=== PATIENT | male | born 1950 | race Caucasian/White ===

== ENCOUNTER 2017-05-11 12:30 | Inpatient (IN) | payer MEDICARE, OTHER ==
[~2017-05-11] VITALS: Ht 175.3 cm; Wt 76.5 kg
[2017-06-07] MEDS ORDERED: LANTUS2P SQ (16:24)
[2017-06-07] MEDS ORDERED: FAMO20TA2 PO (16:24)
[2017-06-07] MEDS ORDERED: CETI10CA3 PO (16:24)
[2017-06-07] MEDS ORDERED: ATOR10TA15 PO (16:24)
[2017-06-07] MEDS ORDERED: CART120C PO (16:24)
[2017-06-07] MEDS ORDERED: METF500T PO (16:24)
[2017-06-07] MEDS ORDERED: ASPI1TAB57 PO (16:24)
[2017-06-07] MEDS ORDERED: GLIM2TAB PO (16:24)
[2017-06-08] MEDS ORDERED: METOPROLOL TARTRATE 25 MG TAB PO PRN (11:15)
[2017-06-08] MEDS ORDERED: LACTATED RINGER'S 1000 ML IV PRN (11:15)
[2017-06-08] MEDS ORDERED: CHLORHEXIDINE GLUCONATE 2 % 1 PACK (2 CLOTHS) TOPICAL PRN (11:15)
[2017-06-08] MEDS ORDERED: POVIDONE IODINE 5% (ANTISEPSIS KIT) 4 APPLICATIONS EACH NARE PRN (11:15)
[2017-06-08] MEDS ORDERED: SODIUM CHLORID 0.9% 500 ML IV PRN (11:15)
[2017-06-08] MEDS ORDERED: CEFAZOLIN INJ 2,000 MG in SODIUM CHLORIDE 0.9% INJ 100 ML IV SCH (11:15)
[2017-06-08 11:48] LABS: PROTHROMBIN TIME - PATIENT 10.4 SEC (9.8-11.6)
[2017-06-08] MEDS ORDERED: ROCURONIUM INJ 50 MG/5 ML SYRINGE IV PUSH ONE (12:00)
[2017-06-08] MEDS ORDERED: PROPOFOL 200 MG/20 ML AMP IV ONE (12:00)
[2017-06-08] MEDS ORDERED: ONDANSETRON HCL 4 MG/2 ML VIAL IV ONE (12:00)
[2017-06-08] MEDS ORDERED: DEXAMETHASONE SOD PHOS 4 MG/ML VIAL IV ONE (12:00)
[2017-06-08] MEDS ORDERED: PHENYLEPHRINE HCL 10 MG/ML VIAL IV ONE (12:00)
[2017-06-08] MEDS ORDERED: GLYCOPYRROLATE 1 MG/5 ML SYRINGE IV PUSH ONE (12:00)
[2017-06-08] MEDS ORDERED: PHENYLEPH/NS 1000 MCG/10 ML SYR IV ONE (12:00)
[2017-06-08] MEDS ORDERED: ceFAZolin INJ 1,000 MG VIAL IV ONE ×2 (12:00→16:51)
[2017-06-08] MEDS ORDERED: VECURONIUM BROMIDE 20 MG VIAL IV ONE (12:00)
[2017-06-08] MEDS ORDERED: LIDOCAINE HCL 1% PF 5 ML SYRINGE OTHER ONE (12:00)
[2017-06-08] MEDS ORDERED: ceFAZolin 2 GM PREMIX 50 ML ONE (12:39)
[2017-06-08] MEDS ORDERED: ACETAMINOPHEN 1000 MG/100 ML 100 ML IV ONE (12:52)
[2017-06-08] MEDS ORDERED: SUGAMMADEX SODIUM 200 MG/2 ML VIAL IV PUSH ONE (17:03)
[2017-06-08] MEDS: SODIUM CHLOR 0.9% 1000 ML INJ 1,000 ML IV SCH (17:45)
[2017-06-08] MEDS ORDERED: ONDANSETRON HCL 4 MG/2 ML VIAL IV PUSH PRN (17:45)
[2017-06-08] MEDS: PANTOPRAZOLE SODIUM 40 MG VIAL IV PUSH SCH (17:45)
[2017-06-08] MEDS ORDERED: CETIRIZINE HCL 10 MG TAB PO PRN (17:45)
[2017-06-08] MEDS: ACETAMINOPHEN 1000 MG/100 ML 100 ML IV SCH (17:45)
[2017-06-08] MEDS ORDERED: GLIMEPIRIDE 2 MG TAB PO PRN (17:45)
[2017-06-08] MEDS ORDERED: MORPHINE SULFATE 4 MG/ML INJ IV PUSH PRN (17:45)
[2017-06-08] MEDS ORDERED: DO NOT ADM ANY ANTICOAGULANT DRUGS PRN (18:15)
[2017-06-08] MEDS ORDERED: MORPHINE SULFATE 4 MG/ML INJ ONE (18:42)
[2017-06-08 18:44] LABS: AUTOMATED NEUTROPHIL # 14.4 TH/MM3 (1.8-7.7); BASOPHIL # 0.1 TH/MM3 (0-0.2); BASOPHIL % 0.4 % (0.0-2.0); EOSINOPHIL % 0.2 % (0.0-4.0); HEMATOCRIT 37.6 % (39.0-51.0); HEMOGLOBIN 12.6 GM/DL (13.0-17.0); LYMPH % 7.8 % (9.0-44.0); LYMPHOCYTE # 1.3 TH/MM3 (1.0-4.8); MEAN CELL VOLUME 91.1 FL (80.0-100.0); MEAN CORPUSCULAR HEMOGLOBIN 30.6 PG (27.0-34.0); MEAN CORPUSCULAR HGB CONC 33.6 % (32.0-36.0); MEAN PLATELET VOLUME 8.1 FL (7.0-11.0); MONO % 1.8 % (0.0-8.0); MONOCYTE # 0.3 TH/MM3 (0-0.9); NEUT % 89.8 % (16.0-70.0); PLATELET COUNT 265 TH/MM3 (150-450); RED BLOOD COUNT 4.13 MIL/MM3 (4.50-5.90); RED CELL DISTRIBUTION WIDTH 13.2 % (11.6-17.2); WHITE BLOOD COUNT 16.1 TH/MM3 (4.0-11.0)
[2017-06-08 19:05] LABS: BICARBONATE 22.9 MEQ/L (21.0-32.0); CALCIUM 8.2 MG/DL (8.5-10.1); CREATININE 1.13 MG/DL (0.60-1.30)
[2017-06-08 20:30] VITALS: BP 150/69; PULSE 83; RESP 18; TEMP 97.1; O2SAT 97
[2017-06-08] MEDS ORDERED: INSULIN DETEMIR 100 UNITS/ML VIAL SQ SCH (21:00)
[2017-06-08 21:21] VITALS: O2SAT 97
[2017-06-08] MEDS: DOCUSATE SODIUM 100 MG CAP PO SCH (21:51)
[2017-06-08] MEDS: INSULIN ASPART SUPPLEMENTAL SCALE SQ SCH (21:52)
[2017-06-09] VITALS (9 sets, daily range): BP systolic 107–140; BP diastolic 55–77; PULSE 62–85; RESP 15–18; TEMP 97.7–98.4; O2SAT 93–98
[2017-06-09] MEDS: ACETAMINOPHEN 1000 MG/100 ML 100 ML IV SCH ×6 (00:20→23:57)
[2017-06-09] MEDS: SODIUM CHLOR 0.9% 1000 ML INJ 1,000 ML IV SCH ×4 (01:45→23:57)
--- NOTE | 2017-06-09 08:19 | PD.CONS ---
[facility] Request[facility] By Reason for Consult medical management Primary Care Physician Kirsten Mike D.O. Diagnoses: History of Present Illness patient is a 66 y/o male with left kidney tumor,CAD,hypertension and diabetes who underwent left nephrectomy. at the time of my evaluation he was resting comfortably with no acute distress although was complaining of mild left upper chest pain.pain at the site of the surgery is controlled. he denies any sob, nausea or vomiting. Review of Systems Constitutional: DENIES: Fever, Weight loss, Chills, Night Sweats Eyes: DENIES: Blurred vision, Diplopia, Vision loss, Double Vision Ears, nose, mouth, throat: DENIES: Tinnitus, Vertigo, Throat pain, Epistaxis Respiratory: DENIES: Apneas, Cough, Snoring, Wheezing, Hemoptysis, Sputum production, Shortness of breath Cardiovascular: COMPLAINS OF: Chest pain, DENIES: Palpitations, Syncope, Dyspnea on Exertion, PND, Lower Extremity Edema, Orthopnea, Claudication Gastrointestinal: DENIES: Abdominal pain, Black stools, Bloody stools, Constipation, Diarrhea, Nausea, Vomiting, Difficulty Swallowing, Anorexia Genitourinary: DENIES: Urinary frequency, Urgency, Hematuria, Dysuria Musculoskeletal: DENIES: Joint pain, Muscle aches, Stiffness, Joint Swelling Integumentary: DENIES: Rash Neurologic: DENIES: Abnormal gait, Headache, Localized weakness, Paresthesias, Seizures, Speech Problems, Tremor, Poor Balance Psychiatric: DENIES: Anxiety, Confusion, Mood changes, Depression, Hallucinations, Agitation, Suicidal Ideation, Homicidal Ideation, Delusions Past Family Social History Allergies: Coded Allergies: No Known Allergies (Unverified , 06/07/17) Past Medical History CAD/hypertension/diabetes Past Surgical History cardiac stent placement/ cholecystectomy. Reported Medications glimepiride/metformin/lantus/aspirin/cardizem Active Ordered Medications Inpatient Medications Acetaminophen 100 ml @ 400 mls/hr Q6H IV Last administered on 06/09/17at 05:05 ; Start 06/08/17 at 17:45 Atorvastatin Calcium (Lipitor) 10 mg DAILY PO ; Start 06/09/17 at 09:00 Cefazolin Sodium (Ancef Inj) 1,000 mg ONCE ONCE IV ; Start 06/08/17 at 16:51; Stop 06/08/17 at 17:16; Status DC Cefazolin Sodium 1000 mg/Sodium Chloride 100 ml @ 200 mls/hr Q8H IV Last administered on 06/09/17at 05:32; Start 06/08/17 at 21:00; Stop 06/09/17 at 05:29 ; Status DC Cefazolin Sodium 2000 mg/Sodium Chloride 120 ml @ 240 mls/hr LIFESTYLE BLOCK FARMER IV ; Start 06/08/17 at 11:15; Stop 06/11/17 at 11:14 Cetirizine HCl (ZyrTEC) 10 mg DAILY PRN PO ALLERGIES; Start 06/08/17 at 17:45 Chlorhexidine Gluconate (Chlorhexidine 2% Cloth) 3 pack LIFESTYLE BLOCK FARMER PRN TOPICAL SEE LABEL COMMENTS Last administered on 06/08/17at 11:11; Start 06/08/17 at 11:15 ; Stop 06/11/17 at 11:14 Diltiazem HCl (Cardizem Cd) 120 mg DAILY PO ; Start 06/09/17 at 09:00 Docusate Sodium (Colace) 100 mg BID PO Last administered on 06/08/17at 21:51; Start 06/08/17 at 21:00 Famotidine (Pepcid) 20 mg DAILY PO ; Start 06/09/17 at 09:00 Glimepiride (Amaryl) 2 mg DAILY PRN PO BLOOD SUGAR OVER 200; Start 06/08/17 at 17:45 Insulin Aspart (NovoLOG SUPPLEMENTAL SCALE) 1 ACHS SLIDING SCALE SQ Last administered on 06/08/17at 21:52; Start 06/08/17 at 21:00 Insulin Detemir (Levemir Inj) 15 units HS SQ Last administered on 06/08/17at 21: 53; Start 06/08/17 at 21:00 Lactated Ringer's 1,000 ml @ 30 mls/hr Q24H PRN IV SEE LABEL COMMENTS Last administered on 06/08/17at 11:10; Start 06/08/17 at 11:15; Stop 06/11/17 at 11:14 Metoprolol Tartrate (Lopressor) 25 mg LIFESTYLE BLOCK FARMER PRN PO SEE LABEL COMMENTS; Start 06/08/17 at 11:15; Stop 06/11/17 at 11:14 Miscellaneous Information ALL NURSING DEPARTME... UNSCH PRN .XX SEE LABEL COMMENTS; Start 06/08/17 at 18:15; Stop 06/09/17 at 18:14 Morphine Sulfate (Morphine Inj) 4 mg Q3H PRN IV PUSH BREAKTHROUGH PAIN; Start 06/08/17 at 17:45 Ondansetron HCl (Zofran Inj) 4 mg Q6HR PRN IV PUSH NAUSEA OR VOMITING; Start at 17:45 Oxycodone HCl (Roxicodone) 10 mg Q4H PRN PO PAIN SCALE 5 TO 10; Start 06/08/17 at 17:45 Pantoprazole Sodium (Protonix Inj) 40 mg Q24H IV PUSH Last administered on 06/08at 17:45; Start 06/08/17 at 17:45 Povidone Iodine (Betadine 5% Antisepsis Kit) 1 applic LIFESTYLE BLOCK FARMER PRN EACH NARE SEE LABEL COMMENTS Last administered on 06/08/17at 11:10; Start 06/08/17 at 11:15 ; Stop 06/11/17 at 11:14 Sodium Chloride 1,000 ml @ 125 mls/hr Q8H IV Last administered on 06/09/17at 01 :45; Start 06/08/17 at 17:45 Social History smokes less than half a pack/ drinks twice a week. Physical Exam Vital Signs Vital Signs Date Time Temp Pulse Resp B/P (MAP) Pulse Ox O2 Delivery O2 Flow Rate FiO2 06/09/17 04:00 98.1 85 18 134/66 (88) 95 06/09/17 00:00 98.3 83 18 140/67 (91) 97 06/08/17 21:21 97 Nasal Cannula 4.00 06/08/17 20:30 97.1 83 18 150/69 (96) 97 06/08/17 19:45 80 15 128/60 (82) 95 Nasal Cannula 4 06/08/17 19:30 79 13 134/69 (90) 97 Nasal Cannula 4 06/08/17 19:15 79 13 123/65 (84) 94 Nasal Cannula 4 06/08/17 19:00 78 13 126/64 (84) 93 Nasal Cannula 4 06/08/17 18:54 15 06/08/17 18:45 79 14 116/61 (79) 93 Nasal Cannula 4 06/08/17 18:30 80 19 116/55 (75) 93 Nasal Cannula 4 06/08/17 18:15 82 19 104/55 (71) 92 Nasal Cannula 4 06/08/17 18:10 96.8 86 15 115/58 (77) 98 Nasal Cannula 4 06/08/17 11:01 98.9 80 20 143/81 (101) 95 Physical Exam GENERAL: This is a well-nourished, well-developed patient, in no apparent distress. SKIN: No rashes, ecchymoses or lesions. Cool and dry. HEAD: Atraumatic. Normocephalic. No temporal or scalp tenderness. EYES: Pupils equal round and reactive. Extraocular motions intact. No scleral icterus. No injection or drainage. ENT: Nose without bleeding, purulent drainage or septal hematoma. Throat without erythema, tonsillar hypertrophy or exudate. Uvula midline. Airway patent. NECK: Trachea midline. No JVD or lymphadenopathy. Supple, nontender, no meningeal signs. CARDIOVASCULAR: Regular rate and rhythm without murmurs, gallops, or rubs. RESPIRATORY: Clear to auscultation. Breath sounds equal bilaterally. No wheezes , rales, or rhonchi. GASTROINTESTINAL: Abdomen soft, non-tender, nondistended. No hepato-splenomegaly , or palpable masses. No guarding. MUSCULOSKELETAL: Extremities without clubbing, cyanosis, or edema. No joint tenderness, effusion, or edema noted. No calf tenderness. Negative Homans sign bilaterally. NEUROLOGICAL: Awake and alert. Cranial nerves II through XII intact. Motor and sensory grossly within normal limits. Five out of 5 muscle strength in all muscle groups. Normal speech. Laboratory Laboratory Tests Test 06/08/17 10:30 06/08/17 18:30 Prothrombin Time 10.4 Prothromb Time International Ratio 1.0 White Blood Count 16.1 Red Blood Count 4.13 Hemoglobin 12.6 Hematocrit 37.6 Mean Corpuscular Volume 91.1 Mean Corpuscular Hemoglobin 30.6 Mean Corpuscular Hemoglobin Concent 33.6 Red Cell Distribution Width 13.2 Platelet Count 265 Mean Platelet Volume 8.1 Neutrophils (%) (Auto) 89.8 Lymphocytes (%) (Auto) 7.8 Monocytes (%) (Auto) 1.8 Eosinophils (%) (Auto) 0.2 Basophils (%) (Auto) 0.4 Neutrophils # (Auto) 14.4 Lymphocytes # (Auto) 1.3 Monocytes # (Auto) 0.3 Eosinophils # (Auto) 0.0 Basophils # (Auto) 0.1 CBC Comment DIFF FINAL Differential Comment Blood Urea Nitrogen 15 Creatinine 1.13 Random Glucose 199 Calcium Level 8.2 Sodium Level 138 Potassium Level 4.3 Chloride Level 105 Carbon Dioxide Level 22.9 Anion Gap 10 Estimat Glomerular Filtration Rate 65 Result Diagram: 06/08/17182906/08/171829 Assessment and Plan Assessment and Plan A/P - left kidney tumor- s/p left nephrectomy; management per Urology -chest pain with history of CAD/ stent placement; check EKG and troponin will resume aspirin when ok with urology -hypertension; resume home meds -diabetes mellitus; resumed long-acting insulin- continue with accu-check thank you for the consult. Discussed Condition With the patient. Jatin Amaya MD Jun 09, 2017 08:19
--- NOTE | 2017-06-09 09:26 | MP ---
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 PROCEDURE PERFORMED: Robotic-assisted laparoscopic left nephroureterectomy with bladder cuff. SURGEON: Jax Wood MD ANESTHESIA: General. COMPLICATIONS: None. PREOPERATIVE ANTIBIOTICS: Ancef 2 grams IV. DRAINS: A 20-Kosovan 3-way Barnes catheter to gravity drainage. SPECIMENS: Left adrenal gland, lymph nodes, kidney and ureter for permanent. ESTIMATED BLOOD LOSS: 200 mL. INTRAVENOUS FLUIDS: 2 liters. DISPOSITION: Stable to recovery. INDICATIONS FOR PROCEDURE: The patient is a 66-year-old male with a longstanding history of smoking, who presented to [facility] with episode of gross hematuria. During workup, the patient was found to have a large filling defect in his left renal pelvis. He was originally seen by my partner, Dr. Galicia, who did ureteroscopy on him and found this large mass. Biopsy was taken which was consistent with high-grade urothelial cell carcinoma. He was then referred for surgical treatment. After risks, benefits and alternatives were explained to the patient, including endoscopy versus surgical removal, he elected to proceed with surgical removal laparoscopically. After risks, benefits and alternatives were explained to the patient, including the risk of renal failure, dialysis, conversion to open and injury to other organs, he elected to proceed. Informed consent was obtained. DETAILS OF PROCEDURE: The patient was properly identified and brought back to the operating room and placed supine on the operating table. Appropriate timeout was performed under the direction of anesthesiology, the patient was intubated, induced under general anesthetic. Preoperative antibiotics in the form of Ancef 2 grams IV were given at the start of the procedure. A 20-Kosovan 3-way Barnes catheter was then placed under sterile technique. He was then placed in the right lateral decubitus position with left side up. All pressure points were padded. A stab incision was made superior and lateral to the umbilicus on the left side. A Veress needle was then used to gain access to the abdominal cavity. Pneumoperitoneum was then achieved. Under direct visualization, I then passed a long camera port into the abdomen under direct visualization. The abdominal cavity was inspected. There was no evidence of intra-abdominal injury. There were some adhesions near the spleen adherent to the anterior abdominal wall. At this time, 4 other ports were then placed, including two 8 mm robotic ports which were triangulated off the camera port and then two 12 mm process assistant ports superior and inferior to the umbilicus. The was then brought into position. I began by taking down the anterior abdominal wall adhesions with cold scissors. Once this was performed, I took down the white line of Toldt and reflected the colon medially. This was retroperitoneum. Due to the nature of the procedure, I did reflect the colon all the way down towards the iliac vessels. I then carefully developed, bluntly dissected the mesentery of the colon off of the kidney and Gerota's fascia. At this time, this opened up the retroperitoneum to see the ureter very clearly, as well as the gonadal vein. I then developed a plane between the ureter and the psoas muscle and then marched cranially following the left renal vein to the attachment of the large left renal vein. There were several other small accessory veins that were seen. These were taken with a robotic vessel sealer. At this time, I was able to circumferentially dissect out the renal vein and artery individually. Each one was then taken separately, starting with the artery with endovascular stapler. Due to the nature of his disease, I then did a wide dissection superiorly, in which I did take the adrenal gland and the lymph tissue around the kidney as it appeared to be slightly enlarged. Once the superior pole was freed, then I worked my way laterally and freed the kidney laterally, just leaving the ureter intact. I then carefully dissected the ureter caudally towards the pelvis with both blunt dissection and electrocautery. A Hem-o-salvador clip was then placed around the mid to distal ureter. At this time, during retraction, the distal ureter did tear. I was able to save it and placed a Hem-o-salvador across it and a stitch for retraction. I carried out the dissection all the way down towards the bladder until I found the intramural ureter. I was able to dissect the detrusor muscle off of the ureter through the tunnel and then I divided the ureter with a bladder cuff. At this point, the kidney, ureter, adrenal gland and lymph tissue was placed in EndoCatch bag for later removal. The pneumoperitoneum was brought down to 7 mmHg and the abdominal cavity was inspected. Hemostasis was adequate. Three ends of was then placed in the renal fossa and adrenal bed around the hilum for hemostatic purposes. The kidney was then extracted through the left lower quadrant position after extending the incision. It was closed with a running 1-0 PDS. A second look was then performed. The underside of the closure incision appeared to be free of bowel. There was no evidence of any bleeding within the abdominal cavity itself. All ports were removed under direct visualization. Skin incisions were then closed with 4-0 Monocryl. Sponge, instrument and needle count was correct at the end of the case. The patient was extubated and sent to recovery in stable condition, will be transferred to the floor for routine postoperative care. MD SEAN Ramírez/SILVERIO , 05:50 PM , 06:36 PM
[2017-06-09] MEDS: DOCUSATE SODIUM 100 MG CAP PO SCH ×2 (09:55→20:39)
[2017-06-09] MEDS: DILTIAZEM-CD 120 MG CAP ER PO SCH (09:56)
[2017-06-09] MEDS: FAMOTIDINE 20 MG TAB PO SCH (09:56)
[2017-06-09] MEDS: ATORVASTATIN 10 MG TAB PO SCH (09:56)
[2017-06-09] MEDS: INSULIN ASPART SUPPLEMENTAL SCALE SQ SCH ×4 (09:57→20:49)
--- NOTE | 2017-06-09 11:00 | RADRPT ---
EXAM DATE/TIME: 06/09/2017 10:48 [facility] COMPARISON: No previous studies available for comparison. INDICATIONS : Left anterior chest pain since this morning. Post left nephrectomy yesterday. MEDICAL HISTORY : Hypertension. Diabetes. Left kidney cancer. SURGICAL HISTORY : Nephrectomy, left. Coronary artery stent. ENCOUNTER: Initial ACUITY: 1 day PAIN SCORE: 7/10 LOCATION: Left anterior chest. FINDINGS: There is some atelectasis and small effusion in the left lower lung. There is a 3 cm left apical pneu mothorax. There is evidence of free air under the right hemidiaphragm. Patient is status post a left nephrectomy yesterday. This would account for the free intraperitoneal air. The right lung is grossly clear. The heart size is within normal limits. CONCLUSION: 1. 3 cm left apical pneumothorax. 2. Mild left lower lung atelectasis and small left effusion. 3. Free air underneath the right hemidiaphragm characteristic of patient's recent surgery. Gene Landa MD on June 09, 2017 at 10:55 Board Certified Radiologist. This report was verified electronically.
[2017-06-09 12:01] LABS: HEMATOCRIT 36.8 % (39.0-51.0); HEMOGLOBIN 12.4 GM/DL (13.0-17.0); MEAN CELL VOLUME 91.1 FL (80.0-100.0); MEAN CORPUSCULAR HEMOGLOBIN 30.8 PG (27.0-34.0); MEAN CORPUSCULAR HGB CONC 33.8 % (32.0-36.0); MEAN PLATELET VOLUME 8.2 FL (7.0-11.0); PLATELET COUNT 268 TH/MM3 (150-450); RED BLOOD COUNT 4.04 MIL/MM3 (4.50-5.90); RED CELL DISTRIBUTION WIDTH 13.4 % (11.6-17.2); WHITE BLOOD COUNT 16.6 TH/MM3 (4.0-11.0)
[2017-06-09 12:29] LABS: BICARBONATE 26.4 MEQ/L (21.0-32.0); CALCIUM 7.9 MG/DL (8.5-10.1); CREATININE 1.46 MG/DL (0.60-1.30)
[2017-06-09] MEDS ORDERED: MIDAZOLAM HCL 2 MG/2 ML VIAL ONE ×2 (15:08→15:25)
--- NOTE | 2017-06-09 15:46 | PD.RAD ---
Post Procedure Progress Note Pre Procedure Diagnosis: (1) Pneumothorax on left Post Procedure Diagnosis: (1) Pneumothorax on left Procedure Date: Jun 09, 2017 Supervising Radiologist: Elia Tyson JR Proceduralist/Assist: Leslie Grayson, RT(R)(CV), Carmel Lujan RT(R) Anesthesia: Conscious Sedation Plan of Activity Patient to Unit: ROPU Patient Condition: Good See PACS Report for procedural detail/treatment Drainage Procedure Procedure 1 Imaging Guidance: Fluoroscopy Side: Left Procedure Type: Chest Tube Non-Tunneled Procedure: Placement Belarusian: 10 Drainage: Pleurovac Findings: Left apical chest tube placed without difficulty. Plan F/U CXR tomorrow. Jr. Jah,Elia Muñiz MD Jun 09, 2017 15:46
--- NOTE | 2017-06-09 16:01 | RADRPT ---
EXAM DATE/TIME: 06/09/2017 15:26 [facility] COMPARISON: No previous studies available for comparison. INDICATIONS : Patient with symptomatic pneumothorax in need of chest tube placement. MEDICAL HISTORY : CAD, HTN, Diabetes, Left kidney tumor SURGICAL HISTORY : Cardiac stent placement, Cholecystectomy, Left nephrectomy ENCOUNTER: Initial ACUITY: 1 day PAIN SCORE: 7/10 LOCATION: Left chest FLUORO TIME: 1.2 minutes IMAGE SERIES: 1 SEDATION TIME: 30 minutes MEDICATION(S): 1.) 3 mg midazolam (Versed) IV 2.) 150 mcg fentanyl (Sublimaze) IV DEVICE(S): 1.) 10 [place] non-locking catheter [place] PROCEDURE : 1. Fluoroscopically guided chest tube placement. 2. Conscious sedation with continuous EKG and oximetry monitoring. The risks, benefits and alternatives to the procedure were explained and verbal and written consent w as obtained. The site was prepped in sterile fashion. Full sterile technique was used, including ca p, mask, sterile gloves and gown and a large sterile sheet. Hand hygiene and 2% chlorhexidine and/or betadine/alcohol prep was utilized per protocol for cutaneous antisepsis. The skin and subcutaneous tissues were infiltrated with local anesthetic solution. With fluoroscopic guidance the chest was punctured between the first and second interspace and the pr escribed catheter was placed in the lung apex. Wall suction was applied. Post procedure images demon strate satisfactory position of the tube. The catheter was sutured in place and a Percu-Stay was verena lied. Conscious sedation was performed with the prescribed dosages and duration as above in the presence of an independent trained radiology nurse to assist in the monitoring of the patient. EKG and oximetry remained stable throughout the procedure. The patient tolerated the procedure well and there were n o complications. The patient was sent to post anesthesia recovery in stable condition. CONCLUSION: Uncomplicated left chest tube placement as above. Elia Tyson Jr., MD on June 09, 2017 at 15:56 Board Certified Radiologist. This report was verified electronically.
--- NOTE | 2017-06-09 16:07 | RADRPT ---
EXAM DATE/TIME: 06/09/2017 15:52 [facility] COMPARISON: CHEST PA & LAT, June 09, 2017, 10:48. INDICATIONS : Status post chest tube placement. MEDICAL HISTORY : CAD, HTN, Diabetes, Left kidney tumor SURGICAL HISTORY : Cardiac stent placement, Cholecystectomy, Left nephrectomy. ENCOUNTER: Subsequent ACUITY: 1 day PAIN SCORE: Non-responsive. LOCATION: Bilateral chest FINDINGS: Patient status post placement of a small left-sided chest tube. A chest tube is in the left upper dwight g area. There continues to be a small left apical pneumothorax with 1.8 cm of separation. This is imp roved compared to the prior exam. There is some atelectasis in the left lower lung. The right lung is grossly clear. CONCLUSION: 1. Status post placement of left-sided chest tube. 2. Small residual left apical pneumothorax with 1.8 cm of separation. Gene Landa MD on June 09, 2017 at 16:03 Board Certified Radiologist. This report was verified electronically.
--- NOTE | 2017-06-09 16:35 | EKG ---
Date Performed: 06/09/2017 Time Performed: 11:12:38 PTAGE: 66 years EKG: Sinus rhythm LOW QRS VOLTAGE IN PRECORDIAL LEADS ANTEROSEPTAL MYOCARDIAL INFARCTION , OF INDETERMINATE AGE ANTERI OR T WAVE CHANGES ABNORMAL ECG NO PREVIOUS TRACING DOCTOR: Hanna Allan Interpretating Date/Time 06/09/2017 16:34:05
[2017-06-09] MEDS: PANTOPRAZOLE SODIUM 40 MG VIAL IV PUSH SCH (17:31)
--- NOTE | 2017-06-09 17:35 | HHI.PR ---
Subjective Patient symptoms today just got back from chest tube insertion. Feels slightly better.Denies abdominal pain, nausea, fevers, chills. Has not been OOB. Has appetite. Has not passed flatus. Objective Vital Signs Vital Signs Date Time Temp Pulse Resp B/P (MAP) Pulse Ox O2 Delivery O2 Flow Rate FiO2 06/09/17 16:00 97.7 67 16 122/65 (84) 98 06/09/17 15:59 69 18 107/68 (81) 97 06/09/17 15:44 98.4 68 17 129/77 (94) 94 06/09/17 12:00 97.9 71 15 119/68 (85) 96 06/09/17 08:15 93 21 06/09/17 08:00 98.0 78 15 116/55 (75) 94 06/09/17 04:00 98.1 85 18 134/66 (88) 95 06/09/17 00:00 98.3 83 18 140/67 (91) 97 06/08/17 21:21 97 Nasal Cannula 4.00 06/08/17 20:30 97.1 83 18 150/69 (96) 97 06/08/17 19:45 80 15 128/60 (82) 95 Nasal Cannula 4 06/08/17 19:30 79 13 134/69 (90) 97 Nasal Cannula 4 06/08/17 19:15 79 13 123/65 (84) 94 Nasal Cannula 4 06/08/17 19:00 78 13 126/64 (84) 93 Nasal Cannula 4 06/08/17 18:54 15 06/08/17 18:45 79 14 116/61 (79) 93 Nasal Cannula 4 06/08/17 18:30 80 19 116/55 (75) 93 Nasal Cannula 4 06/08/17 18:15 82 19 104/55 (71) 92 Nasal Cannula 4 06/08/17 18:10 96.8 86 15 115/58 (77) 98 Nasal Cannula 4 Intake & Output 06/09/17 06/09/17 07:00 19:00 Intake Total 1780 ml Output Total 900 ml Balance 880 ml Intake Oral 480 ml IV Total 1300 ml Output Urine Total 900 ml # Bowel Movements 0 Result Diagram: 06/09/17 1113 06/09/17 1113 Imaging Last 24 hours Impressions Chest X-Ray 06/09/17 0000 Signed Impressions: Service Date/Time: Friday, June 09, 2017 15:52 - CONCLUSION: 1. Status post placement of left-sided chest tube. 2. Small residual left apical pneumothorax with 1.8 cm of separation. eGne Landa MD Chest X-Ray 06/09/17 0000 Signed Impressions: Service Date/Time: Friday, June 09, 2017 10:48 - CONCLUSION: 1. 3 cm left apical pneumothorax. 2. Mild left lower lung atelectasis and small left effusion. 3. Free air underneath the right hemidiaphragm characteristic of patient's recent surgery. Gene Landa MD Chest Tube Insertion 06/09/17 0000 Signed Impressions: Service Date/Time: Friday, June 09, 2017 15:26 - CONCLUSION: Uncomplicated left chest tube placement as above. Elia Tyson Jr., MD Objective Remarks NAD. A/O x 3 abd soft, NT, mild distention. inc c/d/i RRR EXT NT. No edema Barnes clear, yellow urine. Medications and IVs Current Medications Medications (Trade) Dose Ordered Sig/[place] Route Start Time Stop Time Status Last Admin Lactated Ringer's 1,000 ml @ 30 mls/hr Q24H PRN IV 06/08/17 11:15 06/11/17 11:14 06/08/17 11:10 Sodium Chloride 500 ml @ 30 mls/hr [id number] PRN IV 06/08/17 11:15 06/11/17 11:14 (Lopressor) 25 mg REHABILITATION TEAM LEAD PRN PO 06/08/17 11:15 06/11/17 11:14 (Betadine 5% Antisepsis Kit) 1 applic REHABILITATION TEAM LEAD PRN EACH NARE 06/08/17 11:15 06/11/17 11:14 06/08/17 11:10 (Chlorhexidine 2% Cloth) 3 pack REHABILITATION TEAM LEAD PRN TOPICAL 06/08/17 11:15 06/11/17 11:14 06/08/17 11:11 Cefazolin Sodium 2000 mg/Sodium Chloride 120 ml @ 240 mls/hr REHABILITATION TEAM LEAD IV 06/08/17 11:15 06/11/17 11:14 (Colace) 100 mg BID PO 06/08/17 21:00 06/09/17 09:55 (Zofran Inj) 4 mg Q6HR PRN IV PUSH 06/08/17 17:45 (Protonix Inj) 40 mg Q24H IV PUSH 06/08/17 17:45 06/08/17 17:45 (Roxicodone) 10 mg Q4H PRN PO 06/08/17 17:45 Acetaminophen 100 ml @ 400 mls/hr Q6H IV 06/08/17 17:45 06/09/17 12:05 (Morphine Inj) 4 mg Q3H PRN IV PUSH 06/08/17 17:45 Sodium Chloride 1,000 ml @ 125 mls/hr Q8H IV 06/08/17 17:45 06/09/17 09:45 (Lipitor) 10 mg DAILY PO 06/09/17 09:00 06/09/17 09:56 (Cardizem Cd) 120 mg DAILY PO 06/09/17 09:00 06/09/17 09:56 (Pepcid) 20 mg DAILY PO 06/09/17 09:00 06/09/17 09:56 (Amaryl) 2 mg DAILY PRN PO 06/08/17 17:45 (Levemir Inj) 15 units HS SQ 06/08/17 21:00 Future Hold 06/08/17 21:53 (ZyrTEC) 10 mg DAILY PRN PO 06/08/17 17:45 (NovoLOG SUPPLEMENTAL SCALE) 1 ACHS SLIDING SCALE SQ 06/08/17 21:00 06/09/17 12:08 Miscellaneous Information ALL NURSING DEPARTME... UNSCH PRN .XX 06/08/17 18:15 06/09/17 18:14 Assessment and Plan Assessment and Plan POD #1 s/p Left Robotic Nephroureterectomy, Left PTX -Hgb stable. Repeat in A.M. -Creatinine slightly elevated as expected. Repeat BMP in AM. -Troponin negative. chest pain likely from PTX. -OOB -Advance diet -Incentive Spirometry, EPC cuffs -I am not surprised he has a PTX. During surgery yesterday, the kidney and lymph nodes were adherent to all the surrounding structures, including the Spleen and abdominal side wall, almost a Desmoplastic reaction. I did a very aggressive dissection of the kidney off of the spleen. during the dissection, the SPARE HAND mentioned the patient's blood pressure dropped into the 90s briefly and his peak pressures went up but then level off and anesthesia was not concerned. I, however, had my suspicions. Therefore, I am not surprised he has a PTX on his left side. -I appreciate assistance from all other services. Jax Wood MD Jun 09, 2017 17:35
[2017-06-10] VITALS: BP 105/53; PULSE 69; RESP 18; TEMP 97.7; O2SAT 93
[2017-06-10] MEDS: ACETAMINOPHEN 1000 MG/100 ML 100 ML IV SCH ×3 (05:41→11:45)
[2017-06-10 06:13] LABS: HEMATOCRIT 33.6 % (39.0-51.0); HEMOGLOBIN 11.5 GM/DL (13.0-17.0); MEAN CELL VOLUME 89.9 FL (80.0-100.0); MEAN CORPUSCULAR HEMOGLOBIN 30.7 PG (27.0-34.0); MEAN CORPUSCULAR HGB CONC 34.1 % (32.0-36.0); MEAN PLATELET VOLUME 8.3 FL (7.0-11.0); PLATELET COUNT 248 TH/MM3 (150-450); RED BLOOD COUNT 3.74 MIL/MM3 (4.50-5.90); RED CELL DISTRIBUTION WIDTH 13.4 % (11.6-17.2); WHITE BLOOD COUNT 12.3 TH/MM3 (4.0-11.0)
[2017-06-10 06:54] LABS: CALCIUM 7.4 MG/DL (8.5-10.1); CREATININE 1.33 MG/DL (0.60-1.30)
[2017-06-10 07:23] LABS: CALCIUM-PROTEIN CORRECTED 8.1 MG/DL (8.5-10.1); TOTAL PROTEIN 5.9 GM/DL (6.4-8.2)
--- NOTE | 2017-06-10 07:27 | RADRPT ---
EXAM DATE/TIME: 06/10/2017 06:17 [facility] COMPARISON: CHEST EXPIRATION ONLY, June 09, 2017, 15:52. INDICATIONS : Short of breath, evaluate pneumothorax MEDICAL HISTORY : pneumothorax SURGICAL HISTORY : chest tube ENCOUNTER: Subsequent ACUITY: 2 days PAIN SCORE: 0/10 LOCATION: Bilateral chest FINDINGS: There is a small caliber left-sided chest tube without significant pneumothorax. Basal airspace disea se present with small left effusion. CONCLUSION: 1. Small caliber left chest tube without visible pneumothorax on current exam. Sebastian Phan MD on June 10, 2017 at 7:24 Board Certified Radiologist. This report was verified electronically.
[2017-06-10 08:00] VITALS: BP 112/55; PULSE 68; RESP 19; TEMP 97.5; O2SAT 90
[2017-06-10] MEDS: INSULIN ASPART SUPPLEMENTAL SCALE SQ SCH ×4 (08:00→21:00)
[2017-06-10 08:32] VITALS: O2SAT 93
[2017-06-10] MEDS: DILTIAZEM-CD 120 MG CAP ER PO SCH (09:00)
[2017-06-10] MEDS: DOCUSATE SODIUM 100 MG CAP PO SCH ×2 (09:02→21:00)
[2017-06-10] MEDS: FAMOTIDINE 20 MG TAB PO SCH (09:03)
[2017-06-10] MEDS: ATORVASTATIN 10 MG TAB PO SCH (09:03)
--- NOTE | 2017-06-10 09:07 | HHI.PR ---
Subjective Remarks f/u; pneumothorax/ s/p left nephrectomy in no acute distres. chest pain has much improved. has mild sob. d/w the RN and no other acute issues over night. Objective Vitals Vital Signs Date Time Temp Pulse Resp B/P (MAP) Pulse Ox O2 Delivery O2 Flow Rate FiO2 06/10/17 08:32 93 21 06/10/17 08:00 97.5 68 19 112/55 (74) 90 06/10/17 06:29 18 06/10/17 00:00 97.7 69 18 105/53 (70) 93 06/09/17 20:00 97.9 62 18 122/57 (78) 97 06/09/17 16:00 97.7 67 16 122/65 (84) 98 06/09/17 15:59 69 18 107/68 (81) 97 06/09/17 15:44 98.4 68 17 129/77 (94) 94 06/09/17 12:00 97.9 71 15 119/68 (85) 96 I/O 06/09/17 06/09/17 06/09/17 06/10/17 06/10/17 06/10/17 07:00 15:00 23:00 07:00 15:00 23:00 Intake Total 1680 ml 625 ml 1200 ml 1506 ml 480 ml Output Total 825 ml 1700 ml 1560 ml Balance 855 ml 625 ml -500 ml -54 ml 480 ml Intake Oral 480 ml 1000 ml 480 ml 480 ml IV Total 1200 ml 625 ml 200 ml 1026 ml Output Urine Total 825 ml 1700 ml 1450 ml Chest Tube Drainage Total 110 ml # Bowel Movements 0 0 0 Result Diagram: 06/10/17 0521 06/10/17 0521 Imaging Last Impressions Chest X-Ray 06/10/17 0000 Signed Impressions: Service Date/Time: May 06:17 - CONCLUSION: 1. Small caliber left chest tube without visible pneumothorax on current exam. Sebastian Phan MD Chest Tube Insertion 06/09/17 0000 Signed Impressions: Service Date/Time: Friday, June 09, 2017 15:26 - CONCLUSION: Uncomplicated left chest tube placement as above. Elia Tyson Jr., MD Objective Remarks GENERAL: This is a well-nourished, well-developed patient, in no apparent distress. CARDIOVASCULAR: Regular rate and regular rhythm without murmurs, gallops, or rubs. RESPIRATORY: Clear to auscultation. Breath sounds equal bilaterally. No wheezes , rales, or rhonchi. chest tube in place. GASTROINTESTINAL: Abdomen soft, non-tender, nondistended. Normal, active bowel sounds MUSCULOSKELETAL: Extremities without clubbing, cyanosis, or edema. NEURO: Alert & Oriented x4 to person, place, time, situation. Moves all ext x4 Procedures left nephrectomy/ chest tube placement. Medications and IVs Inpatient Medications Acetaminophen 100 ml @ 400 mls/hr Q6H IV Last administered on 06/10/17at 05:44 ; Start 06/08/17 at 17:45 Atorvastatin Calcium (Lipitor) 10 mg DAILY PO Last administered on 06/09/17at 09 :56; Start 06/09/17 at 09:00 Cefazolin Sodium (Ancef Inj) 1,000 mg ONCE ONCE IV ; Start 06/08/17 at 16:51; Stop 06/08/17 at 17:16; Status DC Cefazolin Sodium 1000 mg/Sodium Chloride 100 ml @ 200 mls/hr Q8H IV Last administered on 06/09/17at 05:32; Start 06/08/17 at 21:00; Stop 06/09/17 at 05:29 ; Status DC Cefazolin Sodium 2000 mg/Sodium Chloride 120 ml @ 240 mls/hr SUBSTATION SUPERINTENDENT IV ; Start 06/08/17 at 11:15; Stop 06/11/17 at 11:14 Cetirizine HCl (ZyrTEC) 10 mg DAILY PRN PO ALLERGIES; Start 06/08/17 at 17:45 Chlorhexidine Gluconate (Chlorhexidine 2% Cloth) 3 pack SUBSTATION SUPERINTENDENT PRN TOPICAL SEE LABEL COMMENTS Last administered on 06/08/17at 11:11; Start 06/08/17 at 11:15 ; Stop 06/11/17 at 11:14 Diltiazem HCl (Cardizem Cd) 120 mg DAILY PO Last administered on 06/09/17at 09: 56; Start 06/09/17 at 09:00 Docusate Sodium (Colace) 100 mg BID PO Last administered on 06/09/17at 20:39; Start 06/08/17 at 21:00 Famotidine (Pepcid) 20 mg DAILY PO Last administered on 06/09/17at 09:56; Start 06/09/17 at 09:00 Glimepiride (Amaryl) 2 mg DAILY PRN PO BLOOD SUGAR OVER 200; Start 06/08/17 at 17:45 Insulin Aspart (NovoLOG SUPPLEMENTAL SCALE) 1 ACHS SLIDING SCALE SQ Last administered on 06/09/17at 20:49; Start 06/08/17 at 21:00 Insulin Detemir (Levemir Inj) 15 units HS SQ Last administered on 06/08/17at 21: 53; Start 06/08/17 at 21:00; Status Future Hold Lactated Ringer's 1,000 ml @ 30 mls/hr Q24H PRN IV SEE LABEL COMMENTS Last administered on 06/08/17at 11:10; Start 06/08/17 at 11:15; Stop 06/11/17 at 11:14 Metoprolol Tartrate (Lopressor) 25 mg SUBSTATION SUPERINTENDENT PRN PO SEE LABEL COMMENTS; Start 06/08/17 at 11:15; Stop 06/11/17 at 11:14 Miscellaneous Information ALL NURSING DEPARTME... UNSCH PRN .XX SEE LABEL COMMENTS; Start 06/08/17 at 18:15; Stop 06/09/17 at 18:14; Status DC Morphine Sulfate (Morphine Inj) 4 mg Q3H PRN IV PUSH BREAKTHROUGH PAIN; Start 06/08/17 at 17:45 Ondansetron HCl (Zofran Inj) 4 mg Q6HR PRN IV PUSH NAUSEA OR VOMITING; Start at 17:45 Oxycodone HCl (Roxicodone) 10 mg Q4H PRN PO PAIN SCALE 5 TO 10; Start 06/08/17 at 17:45 Pantoprazole Sodium (Protonix Inj) 40 mg Q24H IV PUSH Last administered on 06/09at 17:31; Start 06/08/17 at 17:45 Povidone Iodine (Betadine 5% Antisepsis Kit) 1 applic SUBSTATION SUPERINTENDENT PRN EACH NARE SEE LABEL COMMENTS Last administered on 06/08/17at 11:10; Start 06/08/17 at 11:15 ; Stop 06/11/17 at 11:14 Sodium Chloride 1,000 ml @ 83 mls/hr Q12H3M IV Last administered on 06/09/17at 23:57; Start 06/08/17 at 17:45 A/P Assessment and Plan A/P - left kidney tumor- s/p left nephrectomy; management per Urology -pneumothorax- s/p chest tube placement continue with pain control- pulmonary consulted. -CAD- resume aspirin when ok with urology. -hypertension; resume home meds -diabetes mellitus; continue with accu-check- resume long-acting insulin soon- if blood sugar stable. -DVT prophylaxis with SCD's. Jatin Amaya MD Jun 10, 2017 09:07
--- NOTE | 2017-06-10 09:31 | MB ---
cc: Bolivar Perez MD DATE: 06/09/2017 REQUESTING PHYSICIAN: Dr. Amaya. REASON FOR CONSULTATION: Evaluation of pneumothorax. HISTORY OF PRESENT ILLNESS: Mr. Teixeira is a pleasant 66-year-old white male with recently diagnosed urothelial cancer. The patient underwent robotic-assisted laparoscopic left nephroureterectomy with bladder cuff yesterday. Today, he was having some chest discomfort. He has a history of coronary artery disease. He had a chest x-ray done, which shows left apical pneumothorax. He underwent chest tube placement with almost reexpansion of the lung. Denies any shortness of breath. No fever, chills. No night sweats. PAST MEDICAL HISTORY: Significant for coronary artery disease, status post 3 stent placement, hypertension, urinary tract cancer, history of malignant melanoma removed before, history of cholecystectomy, diabetes mellitus. MEDICATIONS: He is currently taking Lipitor 10 mg daily, diltiazem 120 mg a day, famotidine 20 mg a day, some insulin, Zofran p.r.n., Protonix 40 mg a day, oxycodone for pain, glimepiride 2 mg a day, Zyrtec 10 mg a day, metoprolol 25 mg as needed and he is on Ancef. ALLERGIES: NO KNOWN DRUG ALLERGIES. SOCIAL HISTORY: He has a history of smoking, continues to smoke less than half pack of cigarettes a day. He drinks socially. He worked in oil and gas industry. FAMILY HISTORY: and his ex- . He has grown children. REVIEW OF SYSTEMS: Normally, he is up around and active. Weight is stable. No DVT or pulmonary embolis. No seizure or epilepsy. PHYSICAL EXAMINATION: GENERAL: Shows a well-developed, nourished, pleasant, elderly male, not in acute distress. VITAL SIGNS: Blood pressure 122/65, heart rate 67, respirations 16, temperature 97.7. HEENT: Pupils are equal, round, reactive to light. Oral mucosa and nasal mucosa normal. NECK: Supple. JVD not raised. CHEST: He has equal air entry bilaterally. He has left chest tube in place, no air leak. CARDIOVASCULAR: S1, S2 normal. ABDOMEN: Benign. EXTREMITIES: No edema. IMPRESSION: 1. Left pneumothorax, status post chest tube placement. 2. History of recent robotic-assisted ureteronephrectomy. 3. Hypertension. 4. Diabetes mellitus. 5. History of coronary disease, status post stent placement. PLAN: Will leave the chest tube to suction. Repeat a chest x-ray in the morning. If there is no pneumothorax the chest tube will be clamped and plan to take the tube out. Supplemental oxygen. Control his pain. Monitor blood sugar. Further treatment will depend on course in the hospital. Thank you Dr. Amaya for this consult. Bolivar Perez MD ADA/rt , 07:46 PM , 08:12 PM [email or web address]
[2017-06-10 12:00] VITALS: BP 153/68; PULSE 76; RESP 19; TEMP 97.9; O2SAT 98
[2017-06-10 16:00] VITALS: BP 118/67; PULSE 89; RESP 19; TEMP 98.4; O2SAT 95
--- NOTE | 2017-06-10 17:11 | HHI.PR ---
Subjective Patient symptoms today feels better. OOB today. Passing some flatus. Denies CP/SOB. tolerating regular diet. Objective Vital Signs Vital Signs Date Time Temp Pulse Resp B/P (MAP) Pulse Ox O2 Delivery O2 Flow Rate FiO2 06/10/17 12:00 97.9 76 19 153/68 (96) 98 06/10/17 08:32 93 21 06/10/17 08:00 97.5 68 19 112/55 (74) 90 06/10/17 06:29 18 06/10/17 00:00 97.7 69 18 105/53 (70) 93 06/09/17 20:00 97.9 62 18 122/57 (78) 97 Intake & Output 06/10/17 06/10/17 07:00 19:00 Intake Total 1506 ml 480 ml Output Total 1560 ml Balance -54 ml 480 ml Intake Oral 480 ml 480 ml IV Total 1026 ml Output Urine Total 1450 ml Chest Tube Drainage Total 110 ml # Bowel Movements 0 Result Diagram: 06/10/17 0521 06/10/17 0521 Imaging Last 24 hours Impressions Chest X-Ray 06/10/17 0000 Signed Impressions: Service Date/Time: May 06:17 - CONCLUSION: 1. Small caliber left chest tube without visible pneumothorax on current exam. Sebastian Phan MD Objective Remarks NAD. A/O x 3 abd soft, NT, mild distention. inc c/d/i RRR EXT NT. No edema Lopes clear, yellow urine. Medications and IVs Current Medications Medications (Trade) Dose Ordered Sig/Catalina Route Start Time Stop Time Status Last Admin Lactated Ringer's 1,000 ml @ 30 mls/hr Q24H PRN IV 06/08/17 11:15 06/11/17 11:14 06/08/17 11:10 Sodium Chloride 500 ml @ 30 mls/hr [id number] PRN IV 06/08/17 11:15 06/11/17 11:14 (Lopressor) 25 mg GRAPHIC DESIGN PROFESSOR PRN PO 06/08/17 11:15 06/11/17 11:14 (Betadine 5% Antisepsis Kit) 1 applic GRAPHIC DESIGN PROFESSOR PRN EACH NARE 06/08/17 11:15 06/11/17 11:14 06/08/17 11:10 (Chlorhexidine 2% Cloth) 3 pack GRAPHIC DESIGN PROFESSOR PRN TOPICAL 06/08/17 11:15 06/11/17 11:14 06/08/17 11:11 Cefazolin Sodium 2000 mg/Sodium Chloride 120 ml @ 240 mls/hr GRAPHIC DESIGN PROFESSOR IV 06/08/17 11:15 06/11/17 11:14 (Colace) 100 mg BID PO 06/08/17 21:00 06/10/17 09:02 (Zofran Inj) 4 mg Q6HR PRN IV PUSH 06/08/17 17:45 (Protonix Inj) 40 mg Q24H IV PUSH 06/08/17 17:45 06/09/17 17:31 (Roxicodone) 10 mg Q4H PRN PO 06/08/17 17:45 Acetaminophen 100 ml @ 400 mls/hr Q6H IV 06/08/17 17:45 06/10/17 11:45 (Morphine Inj) 4 mg Q3H PRN IV PUSH 06/08/17 17:45 Sodium Chloride 1,000 ml @ 83 mls/hr Q12H3M IV 06/08/17 17:45 06/09/17 23:57 (Lipitor) 10 mg DAILY PO 06/09/17 09:00 06/10/17 09:03 (Cardizem Cd) 120 mg DAILY PO 06/09/17 09:00 06/09/17 09:56 (Pepcid) 20 mg DAILY PO 06/09/17 09:00 06/10/17 09:03 (Amaryl) 2 mg DAILY PRN PO 06/08/17 17:45 Future Hold (Levemir Inj) 15 units HS SQ 06/08/17 21:00 Future Hold 06/08/17 21:53 (ZyrTEC) 10 mg DAILY PRN PO 06/08/17 17:45 (NovoLOG SUPPLEMENTAL SCALE) 1 ACHS SLIDING SCALE SQ 06/08/17 21:00 06/09/17 20:49 Assessment and Plan Assessment and Plan POD #2 s/p Left Robotic Nephroureterectomy, Left PTX -Hgb stable. -Renal function improving. Good UOP. -OOB -Regular diet -Cystogram in A.M. If negative, will remove lopes. -Incentive Spirometry, EPC cuffs -I appreciate assistance from all other services. Jax Wood MD Jun 10, 2017 17:10
[2017-06-10] MEDS ORDERED: DOCU1CAP39 PO (17:17)
[2017-06-10] MEDS ORDERED: OXYC1TAB63 PO (17:17)
[2017-06-10] MEDS: PANTOPRAZOLE SODIUM 40 MG VIAL IV PUSH SCH (17:27)
[2017-06-10 20:00] VITALS: BP 115/62; PULSE 118; RESP 16; TEMP 97.3; O2SAT 93
--- NOTE | 2017-06-10 20:32 | HHI.PR ---
Subjective Remarks 66 YOWM with recent robotic urological surgery, PTX Chest tube no air leak Breathing better NoSOB Objective Vital Signs Vital Signs Date Time Temp Pulse Resp B/P (MAP) Pulse Ox O2 Delivery O2 Flow Rate FiO2 06/10/17 16:00 98.4 89 19 118/67 (84) 95 06/10/17 12:00 97.9 76 19 153/68 (96) 98 06/10/17 08:32 93 21 06/10/17 08:00 97.5 68 19 112/55 (74) 90 06/10/17 06:29 18 06/10/17 00:00 97.7 69 18 105/53 (70) 93 I/O 06/09/17 06/09/17 06/09/17 06/10/17 06/10/17 06/10/17 07:00 15:00 23:00 07:00 15:00 23:00 Intake Total 1680 ml 625 ml 1200 ml 1506 ml 480 ml 1000 ml Output Total 825 ml 1700 ml 1560 ml 1050 ml Balance 855 ml 625 ml -500 ml -54 ml 480 ml -50 ml Intake Oral 480 ml 1000 ml 480 ml 480 ml 1000 ml IV Total 1200 ml 625 ml 200 ml 1026 ml Output Urine Total 825 ml 1700 ml 1450 ml 1000 ml Chest Tube Drainage Total 110 ml 50 ml # Bowel Movements 0 0 0 0 Result Diagram: 06/10/1752006/10/17520 Objective Remarks GENERAL: WBWN WM,NAD SKIN: Warm and dry. HEAD: Normocephalic. EYES: No scleral icterus. No injection or drainage. NECK: Supple, trachea midline. No JVD or lymphadenopathy. CARDIOVASCULAR: Regular rate and rhythm without murmurs, gallops, or rubs. RESPIRATORY: Breath sounds equal bilaterally. No accessory muscle use. Right chest tube in place GASTROINTESTINAL: Abdomen soft, non-tender, nondistended. MUSCULOSKELETAL: No cyanosis, or edema. BACK: Nontender without obvious deformity. No CVA tenderness. A/P Assessment and Plan IMPRESSION: 1. Left pneumothorax, status post chest tube placement. 2. History of recent robotic-assisted ureteronephrectomy. 3. Hypertension. 4. Diabetes mellitus. 5. History of coronary disease, status post stent placement. PLAN: Chest tube to suction Clamp chest tube 4 AM Rpt cxr if no ptx, will dc chest tube Aneja,Bolivar Dev MD Jun 10, 2017 20:32
[2017-06-10] MEDS: oxyCODONE/ACETAMINOPHEN 5 MG/325 MG TAB PO PRN (23:11)
[2017-06-11] VITALS: BP 110/50; PULSE 93; RESP 18; TEMP 98; O2SAT 92
[2017-06-11 08:00] VITALS: BP 133/64; PULSE 77; RESP 18; TEMP 97.9; O2SAT 95
[2017-06-11] MEDS: INSULIN ASPART SUPPLEMENTAL SCALE SQ SCH ×3 (08:00→17:55)
--- NOTE | 2017-06-11 08:49 | HHI.PR ---
Subjective Patient symptoms today feels better. Less pain. Tolerating regular diet. Has not ambulated. Denies fevers, chills. Passing flatus. Objective Vital Signs Vital Signs Date Time Temp Pulse Resp B/P (MAP) Pulse Ox O2 Delivery O2 Flow Rate FiO2 06/11/17 08:00 97.9 77 18 133/64 (87) 95 06/11/17 00:00 98.0 93 18 110/50 (70) 92 06/10/17 20:00 97.3 118 16 115/62 (79) 93 06/10/17 19:25 21 06/10/17 16:00 98.4 89 19 118/67 (84) 95 06/10/17 12:00 97.9 76 19 153/68 (96) 98 Intake & Output 06/11/17 06/11/17 07:00 19:00 Intake Total 0 ml 120 ml Output Total 1060 ml Balance -1060 ml 120 ml Intake Oral 0 ml 120 ml Output Urine Total 1050 ml Chest Tube Drainage Total 10 ml Result Diagram: 06/10/1752006/10/17520 Objective Remarks NAD. A/O x 3 abd soft, NT, mild distention. inc c/d/i RRR EXT NT. No edema Barnes clear, yellow urine. Medications and IVs Current Medications Medications (Trade) Dose Ordered Sig/Catalina Route Start Time Stop Time Status Last Admin Lactated Ringer's 1,000 ml @ 30 mls/hr Q24H PRN IV 06/08/17 11:15 06/11/17 11:14 06/08/17 11:10 Sodium Chloride 500 ml @ 30 mls/hr [id number] PRN IV 06/08/17 11:15 06/11/17 11:14 (Lopressor) 25 mg STAINED GLASS WINDOW DESIGNER PRN PO 06/08/17 11:15 06/11/17 11:14 (Betadine 5% Antisepsis Kit) 1 applic STAINED GLASS WINDOW DESIGNER PRN EACH NARE 06/08/17 11:15 06/11/17 11:14 06/08/17 11:10 (Chlorhexidine 2% Cloth) 3 pack STAINED GLASS WINDOW DESIGNER PRN TOPICAL 06/08/17 11:15 06/11/17 11:14 06/08/17 11:11 Cefazolin Sodium 2000 mg/Sodium Chloride 120 ml @ 240 mls/hr STAINED GLASS WINDOW DESIGNER IV 06/08/17 11:15 06/11/17 11:14 (Colace) 100 mg BID PO 06/08/17 21:00 06/10/17 09:02 (Zofran Inj) 4 mg Q6HR PRN IV PUSH 06/08/17 17:45 (Protonix Inj) 40 mg Q24H IV PUSH 06/08/17 17:45 06/10/17 17:27 (Morphine Inj) 4 mg Q3H PRN IV PUSH 06/08/17 17:45 (Lipitor) 10 mg DAILY PO 06/09/17 09:00 06/10/17 09:03 (Cardizem Cd) 120 mg DAILY PO 06/09/17 09:00 06/09/17 09:56 (Pepcid) 20 mg DAILY PO 06/09/17 09:00 06/10/17 09:03 (Amaryl) 2 mg DAILY PRN PO 06/08/17 17:45 Future Hold (Levemir Inj) 15 units HS SQ 06/08/17 21:00 Future Hold 06/08/17 21:53 (ZyrTEC) 10 mg DAILY PRN PO 06/08/17 17:45 (NovoLOG SUPPLEMENTAL SCALE) 1 ACHS SLIDING SCALE SQ 06/08/17 21:00 06/09/17 20:49 (Percocet 5-325 Mg) 2 tab Q4H PRN PO 06/10/17 17:15 06/10/17 23:11 Assessment and Plan Assessment and Plan POD #3 s/p Left Robotic Nephroureterectomy, Left PTX -cystogram this morning. If negative, will d/c. -Ambulate -Regular diet -Chest Tube per Pulmonary, IR -possible d/c later today -discussed path with him Jax Wood MD Jun 11, 2017 08:49
--- NOTE | 2017-06-11 10:07 | RADRPT ---
EXAM DATE/TIME: 06/11/2017 09:14 [facility] COMPARISON: CHEST EXPIRATION ONLY, June 10, 2017, 6:17. CHEST EXPIRATION ONLY, June 09, 2017, 15:52. CHEST TU BE PLACEMENT, LEFT, June 09, 2017, 15:26. CHEST PA & LAT, June 09, 2017, 10:48. INDICATIONS : Pneumothorax MEDICAL HISTORY : Renal CA SURGICAL HISTORY : Nephrectomy, left. ENCOUNTER: Subsequent ACUITY: 3 days PAIN SCORE: 2/10 LOCATION: Left chest FINDINGS: The left lung remains well-expanded without evidence of recurrent pneumothorax. Chest tube remains in place. Resolving basilar airspace disease is noted. Mild residual airspace disease remains evident in the le ft base. Chest is otherwise stable. CONCLUSION: 1. No evidence of left-sided pneumothorax. 2. Resolving basilar airspace disease. Thai Joseph MD on June 11, 2017 at 10:03 Board Certified Radiologist. This report was verified electronically.
[2017-06-11] MEDS ORDERED: DIATRIZOATE MEG 30% 300 ML BOTTLE (for RAD DIAG) I-VESICULR ONE (10:13)
--- NOTE | 2017-06-11 10:28 | RADRPT ---
EXAM DATE/TIME: 06/11/2017 09:17 [facility] COMPARISON: No previous studies available for comparison. INDICATIONS : Bladder leak 1.2 minutes 12 CONTRAST: 300 cc Cystografin MEDICAL HISTORY : Renal CA SURGICAL HISTORY : Left nephroureterectomy ENCOUNTER: Subsequent ACUITY: 4 - 6 days PAIN SCORE: 0/10 LOCATION: Left Nephroureterectomy FINDINGS: Preliminary film is unremarkable. No abnormal calcifications are identified. Following placement of a Barnes catheter the bladder was filled in retrograde fashion to adequate dist ention and post images in multiple obliquities were obtained. The urinary bladder is normal in size and shape. There is no evidence of vesicular ureteral reflux or perforation. There was no post void residual. CONCLUSION: Unremarkable cystogram. Aly Montoya MD on June 11, 2017 at 10:25 Board Certified Radiologist. This report was verified electronically.
[2017-06-11] MEDS: FAMOTIDINE 20 MG TAB PO SCH (10:39)
[2017-06-11] MEDS: ATORVASTATIN 10 MG TAB PO SCH (10:40)
[2017-06-11] MEDS: DILTIAZEM-CD 120 MG CAP ER PO SCH (10:40)
[2017-06-11] MEDS: DOCUSATE SODIUM 100 MG CAP PO SCH (10:40)
[2017-06-11 12:00] VITALS: BP 156/74; PULSE 76; RESP 18; TEMP 98.4; O2SAT 95
[2017-06-11 12:15] VITALS: O2SAT 92
--- NOTE | 2017-06-11 12:59 | HHI.PR ---
Subjective Remarks in no acute distress. looks more comfortable. pain and sob has much improved. Objective Vitals Vital Signs Date Time Temp Pulse Resp B/P (MAP) Pulse Ox O2 Delivery O2 Flow Rate FiO2 06/11/17 12:00 98.4 76 18 156/74 (101) 95 06/11/17 08:00 97.9 77 18 133/64 (87) 95 06/11/17 00:00 98.0 93 18 110/50 (70) 92 06/10/17 20:00 97.3 118 16 115/62 (79) 93 06/10/17 19:25 21 06/10/17 16:00 98.4 89 19 118/67 (84) 95 I/O 06/10/17 06/10/17 06/10/17 06/11/17 06/11/17 06/11/17 07:00 15:00 23:00 07:00 15:00 23:00 Intake Total 1506 ml 480 ml 1000 ml 0 ml 120 ml Output Total 1560 ml 1760 ml 350 ml 550 ml Balance -54 ml 480 ml -760 ml -350 ml -430 ml Intake Oral 480 ml 480 ml 1000 ml 0 ml 120 ml IV Total 1026 ml Output Urine Total 1450 ml 1700 ml 350 ml 550 ml Chest Tube Drainage Total 110 ml 60 ml # Bowel Movements 0 0 Result Diagram: 06/10/17 0521 06/10/17 0521 Imaging Last Impressions Chest X-Ray 06/11/17 0800 Signed Impressions: Service Date/Time: Sunday, June 11, 2017 09:14 - CONCLUSION: 1. No evidence of left-sided pneumothorax. 2. Resolving basilar airspace disease. Thai Joseph MD Cystogram X-Ray 06/11/17 0600 Signed Impressions: Service Date/Time: Sunday, June 11, 2017 09:17 - CONCLUSION: Unremarkable cystogram. Aly Montoya MD Chest Tube Insertion 06/09/17 0000 Signed Impressions: Service Date/Time: Friday, June 09, 2017 15:26 - CONCLUSION: Uncomplicated left chest tube placement as above. Elia Tyson Jr., MD Objective Remarks GENERAL: This is a well-nourished, well-developed patient, in no apparent distress. CARDIOVASCULAR: Regular rate and regular rhythm without murmurs, gallops, or rubs. RESPIRATORY: Clear to auscultation. Breath sounds equal bilaterally. No wheezes , rales, or rhonchi. chest tube in place. GASTROINTESTINAL: Abdomen soft, non-tender, nondistended. Normal, active bowel sounds MUSCULOSKELETAL: Extremities without clubbing, cyanosis, or edema. NEURO: Alert & Oriented x4 to person, place, time, situation. Moves all ext x4 Procedures left nephrectomy/ chest tube placement. Medications and IVs Inpatient Medications Acetaminophen 100 ml @ 400 mls/hr Q6H IV Last administered on 06/10/17at 11:45 ; Start 06/08/17 at 17:45; Stop 06/10/17 at 17:09; Status DC Atorvastatin Calcium (Lipitor) 10 mg DAILY PO Last administered on 06/11/17at 10 :40; Start 06/09/17 at 09:00 Cefazolin Sodium (Ancef Inj) 1,000 mg ONCE ONCE IV ; Start 06/08/17 at 16:51; Stop 06/08/17 at 17:16; Status DC Cefazolin Sodium 1000 mg/Sodium Chloride 100 ml @ 200 mls/hr Q8H IV Last administered on 06/09/17at 05:32; Start 06/08/17 at 21:00; Stop 06/09/17 at 05:29 ; Status DC Cefazolin Sodium 2000 mg/Sodium Chloride 120 ml @ 240 mls/hr EXHIBIT CLEANER IV ; Start 06/08/17 at 11:15; Stop 06/11/17 at 11:14; Status DC Cetirizine HCl (ZyrTEC) 10 mg DAILY PRN PO ALLERGIES; Start 06/08/17 at 17:45 Chlorhexidine Gluconate (Chlorhexidine 2% Cloth) 3 pack EXHIBIT CLEANER PRN TOPICAL SEE LABEL COMMENTS Last administered on 06/08/17at 11:11; Start 06/08/17 at 11:15 ; Stop 06/11/17 at 11:14; Status DC Diltiazem HCl (Cardizem Cd) 120 mg DAILY PO Last administered on 06/11/17 10: 40; Start 06/09/17 at 09:00 Docusate Sodium (Colace) 100 mg BID PO Last administered on 06/11/17 10:40; Start 06/08/17 at 21:00 Famotidine (Pepcid) 20 mg DAILY PO Last administered on 3/30/18at 10:39; Start 06/09/17 at 09:00 Glimepiride (Amaryl) 2 mg DAILY PRN PO BLOOD SUGAR OVER 200; Start 06/08/17 at 17:45; Status Future Hold Insulin Aspart (NovoLOG SUPPLEMENTAL SCALE) 1 ACHS SLIDING SCALE SQ Last administered on 06/09/17at 20:49; Start 06/08/17 at 21:00 Insulin Detemir (Levemir Inj) 15 units HS SQ Last administered on 06/08/17at 21: 53; Start 06/08/17 at 21:00; Status Future Hold Lactated Ringer's 1,000 ml @ 30 mls/hr Q24H PRN IV SEE LABEL COMMENTS Last administered on 06/08/17at 11:10; Start 06/08/17 at 11:15; Stop 06/11/17 at 11:14 ; Status DC Metoprolol Tartrate (Lopressor) 25 mg EXHIBIT CLEANER PRN PO SEE LABEL COMMENTS; Start 06/08/17 at 11:15; Stop 06/11/17 at 11:14; Status DC Miscellaneous Information ALL NURSING DEPARTME... UNSCH PRN .XX SEE LABEL COMMENTS; Start 06/08/17 at 18:15; Stop 06/09/17 at 18:14; Status DC Morphine Sulfate (Morphine Inj) 4 mg Q3H PRN IV PUSH BREAKTHROUGH PAIN; Start 06/08/17 at 17:45 Ondansetron HCl (Zofran Inj) 4 mg Q6HR PRN IV PUSH NAUSEA OR VOMITING; Start at 17:45 Oxycodone HCl (Roxicodone) 10 mg Q4H PRN PO PAIN SCALE 5 TO 10; Start 06/08/17 at 17:45; Stop 06/10/17 at 17:09; Status DC Oxycodone/ Acetaminophen (Percocet 5-325 Mg) 2 tab Q4H PRN PO PAIN SCALE 4 TO 10 Last administered on 06/10/17at 23:11; Start 06/10/17 at 17:15 Pantoprazole Sodium (Protonix Inj) 40 mg Q24H IV PUSH Last administered on 06/10at 17:27; Start 06/08/17 at 17:45 Povidone Iodine (Betadine 5% Antisepsis Kit) 1 applic EXHIBIT CLEANER PRN EACH NARE SEE LABEL COMMENTS Last administered on 06/08/17at 11:10; Start 06/08/17 at 11:15 ; Stop 06/11/17 at 11:14; Status DC Sodium Chloride 1,000 ml @ 83 mls/hr Q12H3M IV Last administered on 06/09/17at 23:57; Start 06/08/17 at 17:45; Stop 06/10/17 at 17:09; Status DC A/P Assessment and Plan A/P - left kidney tumor- s/p left nephrectomy; management per Urology 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 -pneumothorax- s/p chest tube placement continue with pain control- pulmonary following. CXR today with no evidence of pneumothorax. -CAD- resume aspirin when ok with urology. -hypertension; resume home meds -diabetes mellitus; continue with accu-check- resume long-acting insulin soon- if blood sugar stable. -DVT prophylaxis with SCD's. Discharge Planning when cleared by urology and pulmonary. Jatin Amaya MD Jun 11, 2017 12:59
[2017-06-11] MEDS: oxyCODONE/ACETAMINOPHEN 5 MG/325 MG TAB PO PRN ×2 (14:26→19:05)
[2017-06-11 16:00] VITALS: BP 147/67; PULSE 76; RESP 18; TEMP 97.8; O2SAT 95
--- NOTE | 2017-06-11 17:10 | RADRPT ---
EXAM DATE/TIME: 06/11/2017 16:24 [facility] COMPARISON: CHEST SINGLE AP, June 11, 2017, 9:14. CYSTOGRAM (MIN 3VW), June 11, 2017, 9:17. INDICATIONS : Evaluate for pneumothorax. MEDICAL HISTORY : Renal CA SURGICAL HISTORY : Left nephroureterectomy ENCOUNTER: Initial ACUITY: 2 days PAIN SCORE: 2/10 LOCATION: Bilateral chest FINDINGS: Left thoracostomy tube remains in place. There is no evidence of pneumothorax. Basilar pleural-parenc hymal opacities are exacerbated by expiratory technique.. Cardiac contours are grossly stable. CONCLUSION: No pneumothorax Rk Ye MD on June 11, 2017 at 17:08 Board Certified Radiologist. This report was verified electronically.
--- NOTE | 2017-06-11 17:21 | HHI.PR ---
Subjective Remarks 66 YOWM with recent robotic urological surgery, PTX Chest tube no air leak Breathing better NoSOB Chest tube clamped Objective Vital Signs Vital Signs Date Time Temp Pulse Resp B/P (MAP) Pulse Ox O2 Delivery O2 Flow Rate FiO2 06/11/17 16:00 97.8 76 18 147/67 (93) 95 06/11/17 12:15 92 06/11/17 12:00 98.4 76 18 156/74 (101) 95 06/11/17 08:00 97.9 77 18 133/64 (87) 95 06/11/17 00:00 98.0 93 18 110/50 (70) 92 06/10/17 20:00 97.3 118 16 115/62 (79) 93 06/10/17 19:25 21 I/O 06/10/17 06/10/17 06/10/17 06/11/17 06/11/17 06/11/17 07:00 15:00 23:00 07:00 15:00 23:00 Intake Total 1506 ml 480 ml 1000 ml 0 ml 120 ml Output Total 1560 ml 1760 ml 350 ml 550 ml Balance -54 ml 480 ml -760 ml -350 ml -430 ml Intake Oral 480 ml 480 ml 1000 ml 0 ml 120 ml IV Total 1026 ml Output Urine Total 1450 ml 1700 ml 350 ml 550 ml Chest Tube Drainage Total 110 ml 60 ml # Bowel Movements 0 0 Result Diagram: 06/10/1752006/10/17520 Objective Remarks GENERAL: WBWN WM,NAD SKIN: Warm and dry. HEAD: Normocephalic. EYES: No scleral icterus. No injection or drainage. NECK: Supple, trachea midline. No JVD or lymphadenopathy. CARDIOVASCULAR: Regular rate and rhythm without murmurs, gallops, or rubs. RESPIRATORY: Breath sounds equal bilaterally. No accessory muscle use. Right chest tube in place GASTROINTESTINAL: Abdomen soft, non-tender, nondistended. MUSCULOSKELETAL: No cyanosis, or edema. BACK: Nontender without obvious deformity. No CVA tenderness. A/P Assessment and Plan IMPRESSION: 1. Left pneumothorax, status post chest tube placement. 2. History of recent robotic-assisted ureteronephrectomy. 3. Hypertension. 4. Diabetes mellitus. 5. History of coronary disease, status post stent placement. PLAN: Chest tube clamped IR to dc chest tube Wean Bolivar Perez MD Jun 11, 2017 17:21
[2017-06-11] MEDS: PANTOPRAZOLE SODIUM 40 MG VIAL IV PUSH SCH (17:56)
--- NOTE | 2017-06-11 17:56 | RADRPT ---
EXAM DATE/TIME: 06/11/2017 17:20 [facility] COMPARISON: No previous studies available for comparison. INDICATIONS : Pneumothorax DEVICE(S): 1.) Vaseline occlusive dressing PROCEDURE : Chest tube removal. Using aseptic technique the previously placed chest tube was easily removed in one piece and Vaseline gauze and sterile dressing was applied. Chest radiograph is to be obtained. CONCLUSION: Uncomplicated chest tube removal. Rk Ye MD on June 11, 2017 at 17:54 Board Certified Radiologist. This report was verified electronically.
[2017-06-11 17:57] VITALS: O2SAT 93
--- NOTE | 2017-06-11 18:25 | RADRPT ---
EXAM DATE/TIME: 06/11/2017 17:22 [facility] COMPARISON: No previous studies available for comparison. INDICATIONS : Chest tube removal. MEDICAL HISTORY : Renal CA SURGICAL HISTORY : Nephrectomy, left. ENCOUNTER: Initial ACUITY: 1 day PAIN SCORE: 2/10 LOCATION: Right chest FINDINGS: A left thoracostomy tube is removed. There is no evidence of pneumothorax. Bilateral primarily basila r pleuroparenchymal opacities persist unchanged exacerbated by expiratory technique. Cardiac contours are stable. CONCLUSION: Thoracotomy tube removed without complication. Rk Ye MD on June 11, 2017 at 18:23 Board Certified Radiologist. This report was verified electronically.
== END 2017-06-11 20:11 | disposition home or self-care (01) | DRG 657 ==
LOC: HSDI 06-08 10:09 → N07B 06-08 19:56
PROVIDERS: ADMIT Urology; ATTEND Urology
PROC: 0TT74ZZ Resection of Left Ureter, Percutaneous Endoscopic Approach (ICD-10-PCS; 2017-06-08)
PROC: 0GT24ZZ Resection of Left Adrenal Gland, Percutaneous Endoscopic Approach (ICD-10-PCS; 2017-06-08)
PROC: 07BJ4ZX Excision of Left Inguinal Lymphatic, Percutaneous Endoscopic Approach, Diagnostic (ICD-10-PCS; 2017-06-08)
PROC: 8E0W4CZ Robotic Assisted Procedure of Trunk Region, Percutaneous Endoscopic Approach (ICD-10-PCS; 2017-06-08)
PROC: 0TT14ZZ Resection of Left Kidney, Percutaneous Endoscopic Approach (ICD-10-PCS; principal; 2017-06-08 12:32)
PROC: 0W9B30Z Drainage of Left Pleural Cavity with Drainage Device, Percutaneous Approach (ICD-10-PCS; 2017-06-09)
DX: C64.2 Malignant neoplasm of left kidney, except renal pelvis (principal); J93.9 Pneumothorax, unspecified; I10 Essential (primary) hypertension; E11.9 Type 2 diabetes mellitus without complications; I25.10 Atherosclerotic heart disease of native coronary artery without angina pectoris; E78.5 Hyperlipidemia, unspecified; F17.210 Nicotine dependence, cigarettes, uncomplicated; Z79.4 Long term (current) use of insulin; Z85.820 Personal history of malignant melanoma of skin; Z95.5 Presence of coronary angioplasty implant and graft
CPT/HCPCS: 32557; 36430; 71045; 71046; 74430; 80048; 82948; 84155; 84484; 85025; 85027; 85610; 86850; 86900; 86901; 86920; 88307; 93005; 94150; 94618; 99152; 99153; C1729; C1769; C9113; J0131; J0690; J1100; J1815; J2250; J2270; J2370; J2405; J3010; J7030; J7120; P9016; Q9958